=== PATIENT | female | born 1970 | race Caucasian/White ===

== ENCOUNTER 2017-01-04 01:54 | Day surgery (SDC) | payer SELFPAY ==
[2017-01-04] MEDS ORDERED: Ondansetron 4 MG/2 ML SDV IVPUSH ONE (02:22)
[2017-01-04] MEDS ORDERED: HYDROmorphone 1 MG/ML Syringe IVPUSH STA (02:22)
[2017-01-04] MEDS ORDERED: Sodium Chloride 0.9% 1,000 ML IV SCH (02:30)
--- NOTE | 2017-01-04 02:30 | EDM.PDOC ---
ED HPI GENERAL MEDICAL PROBLEM - General Chief Complaint: Abdominal Pain Stated Complaint: ABDOMINAL PAIN Time Seen by Provider: 01/04/17 02:02 Source of Information: Reports: Patient, Family (), RN Notes Reviewed History Limitations: Reports: No Limitations - History of Present Illness INITIAL COMMENTS - FREE TEXT/NARRATIVE: The patient states that she developed epigastric pain around 12 noon yesterday, 01/03/2017. It is crampy in character. It has gotten a little bit better and worse, but for the most part is constant. The patient felt better briefly when lying prone, but that no longer helps, and she has not identified any other modifiers. She has had nausea, but no vomiting. No recent fever, constipation, diarrhea, or urinary symptoms. No prior similar symptoms. The patient has not tried any home treatments. The patient's last oral solid food was at 16:30 01/03/2017. Her last oral liquids was at 00:45 tonight. The patient's PCP is Key Mejia. Bilateral Middle Abdomen Pain Score (Numeric/FACES): 6 - Related Data Allergies Allergy/AdvReac Type Severity Reaction Status Date / Time No Known Allergies Allergy Verified 11/01/14 07:50 Home Meds: Home Meds Venlafaxine HCl [Venlafaxine ER] 37 mg PO DAILY 02/18/14 [History] Past Medical History HEENT History: Reports: Impaired Vision Endocrine/Metabolic History: Reports: Obesity/BMI 30+, Other (See Below) (Night sweats) - Past Surgical History Female Surgical History: Reports: Section (x 2), Hysterectomy, Other (See Below) (Endometrial ablation) Social & Family History - Family History Family Medical History: Noncontributory - Tobacco Use Smoking Status *Q: Never Smoker Second Hand Smoke Exposure: No - Caffeine Use Caffeine Use: Reports: Coffee - Alcohol Use Alcohol Use History: No Days Per Week of Alcohol Use: 0 Number of Drinks Per Day: 0 Total Drinks Per Week: 0 - Recreational Drug Use Recreational Drug Use: No - Living Situation & Occupation Living situation: Reports: , with Spouse, with Family (Daughter) Occupation: Employed (Daycare provider) ED ROS GENERAL - Review of Systems Review Of Systems: See Below Constitutional: Reports: No Symptoms HEENT: Reports: No Symptoms Respiratory: Reports: No Symptoms Cardiovascular: Reports: No Symptoms Endocrine: Reports: No Symptoms GI/Abdominal: Reports: No Symptoms : Reports: No Symptoms Musculoskeletal: Reports: No Symptoms Skin: Reports: No Symptoms Neurological: Reports: No Symptoms Psychiatric: Reports: No Symptoms Hematologic/Lymphatic: Reports: No Symptoms Immunologic: Reports: No Symptoms ED EXAM, GI/ABD - Physical Exam Exam: See Below Exam Limited By: No Limitations General Appearance: Alert, WD/WN, No Apparent Distress Eyes: Bilateral: Normal Appearance, EOMI Ears: Normal External Exam, Hearing Grossly Normal Nose: Normal Inspection, No Blood Throat/Mouth: Normal Inspection, Normal Lips, Normal Voice, No Airway Compromise Head: Atraumatic, Normocephalic Neck: Normal Inspection, Full Range of Motion Respiratory/Chest: No Respiratory Distress, Lungs Clear, Normal Breath Sounds, No Accessory Muscle Use Cardiovascular: Normal Peripheral Pulses, Regular Rate, Rhythm, No Gallop, No JVD, No Murmur, No Rub GI/Abdominal Exam: Normal Bowel Sounds, Soft, No Organomegaly, No Distention, No Abnormal Bruit, No Mass, Pelvis Stable, Tender (Primarily to the right lower quadrant, but also to the right upper quadrant and to the epigastrium. Nontender elsewhere.), Other (Obese) (Female) Exam: Deferred Rectal (Female) Exam: Deferred Back Exam: Normal Inspection, Full Range of Motion. No: CVA Tenderness (L), CVA Tenderness (R) Extremities: Normal Inspection, Normal Range of Motion, No Pedal Edema, Normal Capillary Refill Neurological: Alert, Oriented, Normal Cognition, No Motor/Sensory Deficits Psychiatric: Normal Affect Skin Exam: Warm, Dry, Intact, Normal Color, No Rash Lymphatic: No Adenopathy Course - Vital Signs Last Recorded V/S: Last Vital Signs Temp 35.7 C 01/04/17 02:02 Pulse 78 01/04/17 02:02 Resp 18 01/04/17 02:02 BP 155/74 H 01/04/17 02:02 Pulse Ox 98 01/04/17 02:02 - Orders/Labs/Meds Orders: Active Orders 24 hr Category Date Time Status Abdomen Pelvis w Cont [CT] Stat Exams 01/04/17 02:22 Taken Sodium Chloride 0.9% [Normal Saline] 1,000 ml Med 01/04/17 02:30 Active IV ASDIRECTED Sodium Chloride 0.9% [Saline Flush] Med 01/04/17 03:23 Active 10 ml FLUSH ONETIME PRN Medication Orders Hydromorphone HCl (Dilaudid) 0.5 mg IVPUSH Q1H PRN PRN Reason: Pain Sodium Chloride (Normal Saline) 1,000 mls @ 150 mls/hr IV ASDIRECTED SORIN Last Admin: 01/04/17 02:37 Dose: 150 mls/hr Cefoxitin Sodium 2 gm/ Premix 50 mls @ 100 mls/hr IV ONETIME ONE Stop: 01/04/17 05:00 Last Admin: 01/04/17 04:32 Dose: 100 mls/hr Ondansetron HCl (Zofran) 4 mg IVPUSH Q6HR PRN PRN Reason: Nausea/Vomiting Sodium Chloride (Saline Flush) 10 ml FLUSH ONETIME PRN PRN Reason: IV FLUSH Last Admin: 01/04/17 03:42 Dose: 10 ml Labs: Laboratory Tests 01/04/17 01/04/17 01/04/17 Range/Units 02:28 02:35 02:35 WBC 14.75 H (3.98-10.04) K/mm3 RBC 5.00 (3.98-5.22) M/mm3 Hgb 14.1 (11.2-15.7) gm/L Hct 42.2 (34.1-44.9) % MCV 84.4 (79.4-94.8) fl MCH 28.2 (25.6-32.2) pg MCHC 33.4 (32.2-35.5) g/dl RDW Std Deviation 45.2 (36.4-46.3) fL Plt Count 222 (182-369) K/mm3 MPV 10.6 (9.4-12.3) fl Neutrophils % (Manual) 81 H (40-60) % Band Neutrophils % 1 (0-10) % Lymphocytes % (Manual) 12 L (20-40) % Atypical Lymphs % 0 % Monocytes % (Manual) 6 (2-10) % Eosinophils % (Manual) 0 L (0.7-5.8) % Basophils % (Manual) 0 L (0.1-1.2) Platelet Estimate Adequate Plt Morphology Comment Normal RBC Morph Comment Normal Sodium 138 (136-145) mEq/L Potassium 4.0 (3.5-5.1) mEq/L Chloride 102 (98-107) mEq/L Carbon Dioxide 26 (21-32) mEq/L Anion Gap 14.0 (5-15) BUN 13 (7-18) mg/dL Creatinine 0.8 (0.55-1.02) mg/dL Est Cr Clr Drug Dosing 78.23 mL/min Estimated GFR (MDRD) > 60 (>60) mL/min BUN/Creatinine Ratio 16.3 (14-18) Glucose 134 H (74-106) mg/dL Calcium 9.0 (8.5-10.1) mg/dL Total Bilirubin 0.6 (0.2-1.0) mg/dL AST 14 L (15-37) U/L ALT 21 (14-59) U/L Alkaline Phosphatase 68 (46-116) U/L Total Protein 7.9 (6.4-8.2) g/dl Albumin 3.9 (3.4-5.0) g/dl Globulin 4.0 gm/dL Albumin/Globulin Ratio 1.0 (1-2) Lipase 114 (73-393) U/L Urine Color Yellow (Yellow) Urine Appearance Clear (Clear) Urine pH 7.0 (5.0-8.0) Ur Specific [place] 1.025 (1.005-1.030) Urine Protein Trace H (Negative) Urine Glucose (UA) Negative (Negative) Urine Ketones 2+ H (Negative) Urine Occult Blood Trace-intact H (Negative) Urine Nitrite Negative (Negative) Urine Bilirubin Negative (Negative) Urine Urobilinogen 0.2 (0.2-1.0) Ur Leukocyte Esterase Trace H (Negative) Urine RBC 0-5 (0-5) /hpf Urine WBC 0-5 (0-5) /hpf Ur Epithelial Cells 0-5 (0-5) /hpf Urine Bacteria Few (FEW) /hpf Urine Mucus Few (FEW) /hpf Meds: Medications Generic Name Dose Route Start Last Admin Trade Name Freq PRN Reason Stop Dose Admin Hydromorphone HCl 0.5 mg 01/04/17 04:52 Dilaudid IVPUSH Q1H PRN Pain Sodium Chloride 1,000 mls @ 150 mls/hr 01/04/17 02:30 01/04/17 02:37 Normal Saline IV 150 mls/hr ASDIRECTED SORIN Administration Cefoxitin Sodium 2 gm/ Premix 50 mls @ 100 mls/hr 01/04/17 04:31 01/04/17 04: 32 IV 01/04/17 05:00 100 mls/hr ONETIME ONE Administration Ondansetron HCl 4 mg 01/04/17 04:53 Zofran IVPUSH Q6HR PRN Nausea/Vomiting Sodium Chloride 10 ml 01/04/17 03:23 01/04/17 03:42 Saline Flush FLUSH 10 ml ONETIME PRN Administration IV FLUSH Discontinued Medications Generic Name Dose Route Start Last Admin Trade Name Freq PRN Reason Stop Dose Admin Diatrizoate Meglum/Diatrizoate Sod 90 ml 01/04/17 03:23 01/04/17 03:42 Gastrografin 37% PO 01/04/17 03:24 90 ml ONETIME ONE Administration Hydromorphone HCl 0.5 mg 01/04/17 02:22 01/04/17 02:39 Dilaudid IVPUSH 01/04/17 02:23 0.5 mg ONETIME STA Administration Hydromorphone HCl 0.5 mg 01/04/17 04:08 01/04/17 04:25 Dilaudid IVPUSH 01/04/17 04:09 0.5 mg ONETIME ONE Administration Cefoxitin Sodium 2 gm/ Sodium 100 mls @ 200 mls/hr 01/04/17 04:07 Chloride IV 01/04/17 04:36 ONETIME ONE Cefoxitin Sodium Confirm 01/04/17 04:17 01/04/17 04:47 Mefoxin In Dextrose,Iso-Osm 2 Gm/50 Ml Administered 01/04/17 04:18 Not Given Dose 50 mls @ as directed .ROUTE .STK-MED ONE Iopamidol 125 ml 01/04/17 03:23 01/04/17 03:42 Isovue-300 (61%) IVPUSH 01/04/17 03:24 125 ml ONETIME ONE Administration Ondansetron HCl 4 mg 01/04/17 02:22 01/04/17 02:37 Zofran IVPUSH 01/04/17 02:23 4 mg ONETIME ONE Administration - Re-Assessments/Exams Free Text/Narrative Re-Assessment/Exam: 01/04/17 03:[address] Garcia, Radiologist at [facility] at 03:55 that the patient has uncomplicated acute appendicitis. 01/04/17 04:06 Test results discussed with the patient and her . They are agreeable to my calling the surgeon sock ironer. Case then discussed with Dr. Tovar at 04:02. He would like me to give the patient 2 g Mefoxin and admit her. He will take her to the operating room in the morning. Departure - Departure Time of Disposition: 04:07 Disposition: Admitted As Inpatient 65 Condition: Fair Clinical Impression: Acute appendicitis - Discharge Information - My Orders Last 24 Hours: My Active Orders 01/04/17 02:22 Abdomen Pelvis w Cont [CT] Stat 01/04/17 02:30 Sodium Chloride 0.9% [Normal Saline] 1,000 ml IV ASDIRECTED 01/04/17 03:23 Sodium Chloride 0.9% [Saline Flush] 10 ml FLUSH ONETIME PRN - Assessment/Plan Last 24 Hours: My Active Orders 01/04/17 02:22 Abdomen Pelvis w Cont [CT] Stat 01/04/17 02:30 Sodium Chloride 0.9% [Normal Saline] 1,000 ml IV ASDIRECTED 01/04/17 03:23 Sodium Chloride 0.9% [Saline Flush] 10 ml FLUSH ONETIME PRN
[2017-01-04] MEDS ORDERED: Iopamidol 612 MG/ML 150 ML Bottle IVPUSH ONE (03:23)
[2017-01-04] MEDS ORDERED: Sodium Chloride 0.9% 10 ML Syringe FLUSH PRN (03:23)
[2017-01-04] MEDS ORDERED: Diatrizoate Meglumine/Diatrizoate Sodium 37% 120 ML Bottle PO ONE (03:23)
[2017-01-04] MEDS ORDERED: cefOXitin 2 GM in Sodium Chloride 0.9% 100 ML IV ONE (04:07)
[2017-01-04] MEDS ORDERED: HYDROmorphone 0.5 MG/0.5 ML Syringe IVPUSH ONE (04:08)
[2017-01-04] MEDS ORDERED: cefOXitin 2 GM in Premix Bag 1 BAG IV ONE (04:31)
[2017-01-04] MEDS ORDERED: Ondansetron 4 MG/2 ML SDV IVPUSH PRN ×2 (04:53→10:21)
[2017-01-04] MEDS: HYDROmorphone 0.5 MG/0.5 ML Syringe IVPUSH PRN ×2 (05:22→07:23)
--- NOTE | 2017-01-04 07:44 | CT ---
CT abdomen and pelvis Technique: Multiple axial sections were obtained from above the dome of the diaphragm inferiorly through the pubic symphysis. Intravenous and oral contrast was utilized. Delayed images were also obtained through the bladder. Comparison: No previous abdominal imaging. Findings: Dilated appendix is seen. Several areas of increased density seen within the appendix believed to represent appendicoliths. Inflammatory change is seen around the appendix. Findings are compatible with appendicitis. Visualized lung bases show incidental dependent atelectasis. Liver shows no focal parenchymal abnormality. Spleen appears within normal limits. Adrenal glands show no discrete nodule. Pancreas is within normal limits. Gallbladder shows no calcified gallstones. Kidneys show symmetric contrast enhancement. Cyst noted off the left kidney measuring 1.8 cm. Aorta shows no aneurysmal dilatation. No retroperitoneal adenopathy or mesenteric abnormalities are seen. No pelvic mass or adenopathy is seen. Delayed images show contrast within the distal ureters and within the bladder. No bowel dilatation is seen. Bone window settings were reviewed which appear within normal limits for the patient's age. Impression: 1. Findings compatible with appendicitis. 2. Other incidental findings as described above. Diagnostic code #5 Agree with preliminary report issued by [facility] ([facility] preliminary report dictated on 01/04/17, 4:54 AM Central Time)
[2017-01-04] MEDS ORDERED: Bupivacaine 0.5%/EPINEPHrine 1:200,000 50 ML MDV ONE (08:01)
[2017-01-04] MEDS ORDERED: Lidocaine 1% with EPINEPHrine 1:100,000 20 ML MDV ONE (08:01)
--- NOTE | 2017-01-04 08:02 | PCM.HP ---
H&P History of Present Illness - General Date of Service: 01/04/17 Admit Problem/Dx: Admission Diagnosis/Problem Admission Diagnosis/Problem Acute appendicitis - History of Present Illness Initial Comments - Free Text/Narative: 46-year-old female was in her usual state of excellent health until yesterday at about noon when she fell ill. This was associated with epigastric discomfort which was improved by laying on her stomach. The pain moved the right upper quadrant and then to the right lower quadrant throughout the day. It was associated with anorexia and nausea but no emesis. There was no diarrhea or constipation as well. Because of the persistent discomfort she presented to the emergency room last night where she was seen by staff. A CT of her abdomen and pelvis was performed and had imaging features consistent with acute appendicitis. Her white blood cell count was about 14,000. I was asked to see her in consultation for surgery. Bilateral Middle Abdomen Pain Score (Numeric/FACES): 5 - Related Data Allergies/Adverse Reactions: Allergies Allergy/AdvReac Type Severity Reaction Status Date / Time No Known Allergies Allergy Verified 11/01/14 07:50 Home Medications: Home Meds Venlafaxine HCl [Venlafaxine ER] 37 mg PO DAILY 02/18/14 [History] Past Medical History HEENT History: Reports: Impaired Vision Respiratory History: Reports: Asthma Endocrine/Metabolic History: Reports: Obesity/BMI 30+, Other (See Below) Other Endocrine/Metabolic History: night sweats - Past Surgical History Female Surgical History: Reports: Section, Hysterectomy, Other (See Below) Other Female Surgeries/Procedures: endometrial ablation Social & Family History - Family History Family Medical History: Noncontributory - Tobacco Use Smoking Status *Q: Never Smoker Second Hand Smoke Exposure: No - Caffeine Use Caffeine Use: Reports: Coffee - Alcohol Use Days Per Week of Alcohol Use: 0 Number of Drinks Per Day: 0 Total Drinks Per Week: 0 - Recreational Drug Use Recreational Drug Use: No Drug Use in Last 12 Months: No - Living Situation & Occupation Living situation: Reports: , with Spouse, with Family (Daughter) Occupation: Employed (Daycare provider) H&P Review of Systems - Review of Systems: Review Of Systems: See Below Gastrointestinal: Reports: Abdominal Pain, Anorexia Exam - Exam Exam: See Below - Vital Signs Vital Signs: Last Vital Signs Temp 35.7 C 01/04/17 02:02 Pulse 78 07/25/17 02:02 Resp 18 01/04/17 02:02 BP 155/74 H 01/04/17 02:02 Pulse Ox 98 01/04/17 02:02 Weight: 95.935 kg - Exam General: Alert, Oriented, Cooperative, Mild Distress HEENT: EOMI, Hearing Intact Neck: Supple, Trachea Midline Lungs: Clear to Auscultation, Normal Respiratory Effort Cardiovascular: Regular Rate, Regular Rhythm, Normal S1, Normal S2 GI/Abdominal Exam: Normal Bowel Sounds, Tender (McBurney's point) (Female) Exam: Deferred Rectal (Female) Exam: Deferred Back Exam: Normal Inspection Extremities: Normal Inspection Skin: Warm, Dry, Intact Psychiatric: Alert, Normal Affect, Normal Mood - Patient Data Result Diagrams: 01/04/17 02:35 01/04/17 02:35 *Q Meaningful Use (ADM) - VTE *Q VTE Criteria *Q: - Stroke *Q Stroke Criteria *Q: - AMI *Q AMI Criteria *Q: - Problem List (1) Acute appendicitis SNOMED Code(s): 36267484 ICD Code: K35.80 - UNSPECIFIED ACUTE APPENDICITIS Status: Acute Priority : High Current Visit: Yes Qualifiers: Acute appendicitis type: unspecified acute appendicitis type Qualified Code (s): K35.80 - Unspecified acute appendicitis Problem List Initiated/Reviewed/Updated: Yes Orders Last 24hrs: Active Orders 24 hr Category Date Time Status Admission Status [Patient Status] [ADT] Routine ADT 01/04/17 04:55 Active Bedrest Bathroom Privileges [RC] ASDIRECTED Care 01/04/17 04:59 Active Up With Assistance [RC] ASDIRECTED Care 01/04/17 04:55 Active NPO [Nothing Per Oral Diet] [DIET] Diet 01/04/17 Breakfast Active HYDROmorphone [Dilaudid] Med 01/04/17 04:52 Active 0.5 mg IVPUSH Q1H PRN Ondansetron [Zofran] Med 01/04/17 04:53 Active 4 mg IVPUSH Q6HR PRN Schedule Procedure [COMM] Routine Oth 01/04/17 05:31 Ordered Code Status [Resuscitation Status] Routine Resus Stat 01/04/17 04:52 Ordered Medication Orders Hydromorphone HCl (Dilaudid) 0.5 mg IVPUSH Q1H PRN PRN Reason: Pain Last Admin: 01/04/17 07:23 Dose: 0.5 mg Admin: 01/04/17 05:22 Dose: 0.5 mg Sodium Chloride (Normal Saline) 1,000 mls @ 150 mls/hr IV ASDIRECTED SORIN Last Admin: 01/04/17 02:37 Dose: 150 mls/hr Ondansetron HCl (Zofran) 4 mg IVPUSH Q6HR PRN PRN Reason: Nausea/Vomiting Sodium Chloride (Saline Flush) 10 ml FLUSH ONETIME PRN PRN Reason: IV FLUSH Last Admin: 01/04/17 03:42 Dose: 10 ml Assessment/Plan Comment:: imp: Acute appendicitis. Will need appendectomy. plan: Laparoscopic, possible open appendectomy. The benefits risks of the procedure were explained to her and her . She wanted to proceed as soon as possible.
--- NOTE | 2017-01-04 08:09 | PCM.PREANE ---
Preanesthetic Assessment - Anesthesia/Transfusion/Family Hx Anesthesia History: Prior Anesthesia Without Reaction Family History of Anesthesia Reaction: No Transfusion History: No Prior Transfusion(s) Intubation History: Unknown - Review of Systems General: No Symptoms Pulmonary: No Symptoms (asthma noted per patient, but no need for medication or treatment noted.) Cardiovascular: No Symptoms Gastrointestinal: No Symptoms Neurological: No Symptoms Other: Reports: Easy Bruising - Physical Assessment NPO Status Date: 01/04/17 NPO Status Time: 00:45 Pulse: 78 O2 Sat by Pulse Oximetry: 98 Respiratory Rate: 18 Blood Pressure: 155/74 Temperature: 35.7 C Vital Signs: Last Vital Signs Temp 35.7 C 01/04/17 02:02 Pulse 78 01/04/17 02:02 Resp 18 01/04/17 02:02 BP 155/74 H 01/04/17 02:02 Pulse Ox 98 01/04/17 02:02 Height: 1.65 m Weight: 95.935 kg ASA Class: 2 Mental Status: Alert & Oriented x3 Airway Class: Mallampati = 2 Dentition: Reports: Normal Dentition, Dennison(s), Caries Thyro-Mental Finger Breadths: 3 Mouth Opening Finger Breadths: 3 ROM/Head Extension: Full Lungs: Clear to Auscultation, Normal Respiratory Effort Cardiovascular: Regular Rate, Regular Rhythm, No Murmurs - Lab Values: Laboratory Last Values WBC 14.75 K/mm3 (3.98-10.04) H 01/04/17 02:35 RBC 5.00 M/mm3 (3.98-5.22) 01/04/17 02:35 Hgb 14.1 gm/L (11.2-15.7) 01/04/17 02:35 Hct 42.2 % (34.1-44.9) 01/04/17 02:35 MCV 84.4 fl (79.4-94.8) 01/04/17 02:35 MCH 28.2 pg (25.6-32.2) 01/04/17 02:35 MCHC 33.4 g/dl (32.2-35.5) 01/04/17 02:35 RDW Std Deviation 45.2 fL (36.4-46.3) 01/04/17 02:35 Plt Count 222 K/mm3 (182-369) 01/04/17 02:35 MPV 10.6 fl (9.4-12.3) 01/04/17 02:35 Neutrophils % (Manual) 81 % (40-60) H 01/04/17 02:35 Band Neutrophils % 1 % (0-10) 01/04/17 02:35 Lymphocytes % (Manual) 12 % (20-40) L 01/04/17 02:35 Atypical Lymphs % 0 % 01/04/17 02:35 Monocytes % (Manual) 6 % (2-10) 01/04/17 02:35 Eosinophils % (Manual) 0 % (0.7-5.8) L 01/04/17 02:35 Basophils % (Manual) 0 (0.1-1.2) L 01/04/17 02:35 Platelet Estimate Adequate 01/04/17 02:35 Plt Morphology Comment Normal 01/04/17 02:35 RBC Morph Comment Normal 01/04/17 02:35 Sodium 138 mEq/L (136-145) 01/04/17 02:35 Potassium 4.0 mEq/L (3.5-5.1) 01/04/17 02:35 Chloride 102 mEq/L (98-107) 01/04/17 02:35 Carbon Dioxide 26 mEq/L (21-32) 01/04/17 02:35 Anion Gap 14.0 (5-15) 01/04/17 02:35 BUN 13 mg/dL (7-18) 01/04/17 02:35 Creatinine 0.8 mg/dL (0.55-1.02) 01/04/17 02:35 Est Cr Clr Drug Dosing 78.23 mL/min 01/04/17 02:35 Estimated GFR (MDRD) > 60 mL/min (>60) 01/04/17 02:35 BUN/Creatinine Ratio 16.3 (14-18) 01/04/17 02:35 Glucose 134 mg/dL (74-106) H 01/04/17 02:35 Calcium 9.0 mg/dL (8.5-10.1) 01/04/17 02:35 Total Bilirubin 0.6 mg/dL (0.2-1.0) 01/04/17 02:35 AST 14 U/L (15-37) L 01/04/17 02:35 ALT 21 U/L (14-59) 01/04/17 02:35 Alkaline Phosphatase 68 U/L (46-116) 01/04/17 02:35 Total Protein 7.9 g/dl (6.4-8.2) 01/04/17 02:35 Albumin 3.9 g/dl (3.4-5.0) 01/04/17 02:35 Globulin 4.0 gm/dL 01/04/17 02:35 Albumin/Globulin Ratio 1.0 (1-2) 01/04/17 02:35 Lipase 114 U/L (73-393) 01/04/17 02:35 Urine Color Yellow (Yellow) 01/04/17 02:28 Urine Appearance Clear (Clear) 01/04/17 02:28 Urine pH 7.0 (5.0-8.0) 01/04/17 02:28 Ur Specific [place] 1.025 (1.005-1.030) 01/04/17 02:28 Urine Protein Trace (Negative) H 01/04/17 02:28 Urine Glucose (UA) Negative (Negative) 01/04/17 02:28 Urine Ketones 2+ (Negative) H 01/04/17 02:28 Urine Occult Blood Trace-intact (Negative) H 01/04/17 02:28 Urine Nitrite Negative (Negative) 01/04/17 02:28 Urine Bilirubin Negative (Negative) 01/04/17 02:28 Urine Urobilinogen 0.2 (0.2-1.0) 01/04/17 02:28 Ur Leukocyte Esterase Trace (Negative) H 01/04/17 02:28 Urine RBC 0-5 /hpf (0-5) 01/04/17 02:28 Urine WBC 0-5 /hpf (0-5) 01/04/17 02:28 Ur Epithelial Cells 0-5 /hpf (0-5) 01/04/17 02:28 Urine Bacteria Few /hpf (FEW) 01/04/17 02:28 Urine Mucus Few /hpf (FEW) 01/04/17 02:28 Above lab values reviewed and noted. - Allergies Allergies/Adverse Reactions: Allergies Allergy/AdvReac Type Severity Reaction Status Date / Time No Known Allergies Allergy Verified 11/01/14 07:50 - Anesthesia Plan Pre-Op Medication Ordered: None - Acknowledgements Anesthesia Type Planned: General Anesthesia Pt an Appropriate Candidate for the Planned Anesthesia: Yes Alternatives and Risks of Anesthesia Discussed w Pt/Guardian: Yes Pt/Guardian Understands and Agrees with Anesthesia Plan: Yes PreAnesthesia Questionnaire HEENT History: Reports: Impaired Vision Respiratory History: Reports: Asthma Endocrine/Metabolic History: Reports: Obesity/BMI 30+, Other (See Below) Other Endocrine/Metabolic History: night sweats - Past Surgical History Female Surgical History: Reports: Section, Hysterectomy, Other (See Below) Other Female Surgeries/Procedures: endometrial ablation - SUBSTANCE USE Smoking Status *Q: Never Smoker Second Hand Smoke Exposure: No Days Per Week of Alcohol Use: 0 Number of Drinks Per Day: 0 Total Drinks Per Week: 0 Recreational Drug Use History: No - HOME MEDS Home Medications: Home Meds Venlafaxine HCl [Venlafaxine ER] 37 mg PO DAILY 02/18/14 [History] - CURRENT (IN HOUSE) MEDS Current Meds: Current Medications Hydromorphone HCl (Dilaudid) 0.5 mg IVPUSH Q1H PRN PRN Reason: Pain Last Admin: 01/04/17 07:23 Dose: 0.5 mg Sodium Chloride (Normal Saline) 1,000 mls @ 150 mls/hr IV ASDIRECTED SORIN Last Admin: 01/04/17 02:37 Dose: 150 mls/hr Ondansetron HCl (Zofran) 4 mg IVPUSH Q6HR PRN PRN Reason: Nausea/Vomiting Sodium Chloride (Saline Flush) 10 ml FLUSH ONETIME PRN PRN Reason: IV FLUSH Last Admin: 01/04/17 03:42 Dose: 10 ml Discontinued Medications Diatrizoate Meglum/Diatrizoate Sod (Gastrografin 37%) 90 ml PO ONETIME ONE Stop: 01/04/17 03:24 Last Admin: 01/04/17 03:42 Dose: 90 ml Hydromorphone HCl (Dilaudid) 0.5 mg IVPUSH ONETIME STA Stop: 01/04/17 02:23 Last Admin: 01/04/17 02:39 Dose: 0.5 mg Hydromorphone HCl (Dilaudid) 0.5 mg IVPUSH ONETIME ONE Stop: 01/04/17 04:09 Last Admin: 01/04/17 04:25 Dose: 0.5 mg Cefoxitin Sodium 2 gm/ Sodium (Chloride) 100 mls @ 200 mls/hr IV ONETIME ONE Stop: 01/04/17 04:36 Last Admin: 01/04/17 05:10 Dose: Not Given Cefoxitin Sodium (Mefoxin In Dextrose,Iso-Osm 2 Gm/50 Ml) Confirm Administered Dose 50 mls @ as directed .ROUTE .STK-MED ONE Stop: 01/04/17 04:18 Last Admin: 01/04/17 04:47 Dose: Not Given Cefoxitin Sodium 2 gm/ Premix 50 mls @ 100 mls/hr IV ONETIME ONE Stop: 01/04/17 05:00 Last Admin: 01/04/17 04:32 Dose: 100 mls/hr Iopamidol (Isovue-300 (61%)) 125 ml IVPUSH ONETIME ONE Stop: 01/04/17 03:24 Last Admin: 01/04/17 03:42 Dose: 125 ml Ondansetron HCl (Zofran) 4 mg IVPUSH ONETIME ONE Stop: 01/04/17 02:23 Last Admin: 01/04/17 02:37 Dose: 4 mg
[2017-01-04] MEDS ORDERED: Rocuronium 50 MG/5 ML Vial ONE (08:26)
[2017-01-04] MEDS ORDERED: Ondansetron 4 MG/2 ML SDV ONE (08:26)
[2017-01-04] MEDS ORDERED: ceFAZolin 1 GM Vial ONE (08:26)
[2017-01-04] MEDS ORDERED: Midazolam 1 MG/ML 2 ML SDV ONE (08:27)
[2017-01-04] MEDS ORDERED: fentaNYL 250 MCG/5 ML SDV ONE (08:27)
[2017-01-04] MEDS ORDERED: Propofol 200 MG/20 ML SDV ONE (08:27)
[2017-01-04] MEDS ORDERED: Sodium Chloride 0.9% 10 ML Syringe ONE (08:27)
[2017-01-04] MEDS ORDERED: HYDROmorphone 1 MG/ML Syringe ONE (09:27)
[2017-01-04] MEDS ORDERED: Dexamethasone 4 MG/ML SDV ONE (09:48)
[2017-01-04] MEDS ORDERED: Neostigmine Methylsulfate 1 MG/ML 5 ML Syringe ONE (09:55)
[2017-01-04] MEDS ORDERED: Ketorolac 30 MG/ML SDV ONE (10:04)
[2017-01-04] MEDS ORDERED: fentaNYL 100 MCG/2 ML SDV IVPUSH PRN (10:21)
--- NOTE | 2017-01-04 10:21 | PCM.POSTAN ---
POST ANESTHESIA ASSESSMENT - MENTAL STATUS Mental Status: Alert, Oriented - VITAL SIGNS Pulse Rate: 88 SaO2: 98 Resp Rate: 16 Blood Pressure: 111/67 Temperature: 36.3 C - RESPIRATORY Respiratory Status: respiratory rate WNL, Airway Patent, O2 Saturation Stable - CARDIOVASCULAR CV Status: Pulse Rate WNL, Blood Pressure Stable - GASTROINTESTINAL GI Status: No Symptoms - PAIN Pain Score: 0 - POST OP HYDRATION Hydration Status: Adequate & Stable
--- NOTE | 2017-01-04 10:35 | PCM.OPNOTE ---
- General Post-Op/Procedure Note Date of Surgery/Procedure: 01/04/17 Operative Procedure(s): Laparoscopic appendectomy Findings: Acute suppurative appendicitis. Adhesions between the omentum and the lower midline abdominal wall Pre Op Diagnosis: Acute appendicitis Post-Op Diagnosis: Acute separate appendicitis Anesthesia Technique: General ET Tube, Local Primary Surgeon: Merritt Tovar Pathology: Appendix EBL in mLs: 2 Complications: None Condition: Good Free Text/Narrative:: After adequate general endotracheal tube anesthesia was obtained the patients abdomen was prepped for the procedure. She was draped sterilely afterwards. A super umbilical incision was made with a 15 blade. The midline was entered with a 15 blade. A 12 mm camera port was inserted next followed by CO2 pneumoperitoneum. Exploration revealed the findings above. A 5 mm port was placed in the suprapubic region and in the left lower quadrant after local analgesia was given. I grasped the appendiceal tip and then made a window in the appendiceal mesentery. I fired the stapler across the base of the appendix and then three loads cross a thickened appendiceal mesentery. The appendix was placed in a specimen bag and removed through the umbilicus. I irrigated out the right lower quadrant and placed the omentum in the right lower quadrant. I decannulated the abdomen under direct vision and there were no bleeding from the port sites. The supraumbilical site was closed with a [id number] 0 Vicryl. Subcutaneous tissues were closed with 3-0 Vicryl. The skin was closed with 4-0 Vicryl. Steri-Strips and gauze were used for the dressing. [employer] photographs were taken for the patient and for the record. There were no procedural complications.
[2017-01-04] MEDS ORDERED: HYDROmorphone 0.5 MG/0.5 ML Syringe IVPUSH PRN (10:45)
[2017-01-04] MEDS ORDERED: Acetaminophen/Codeine 300-30 MG Tab PO PRN (11:00)
[2017-01-04 12:27] VITALS: BP 111/66
== END 2017-01-04 14:13 | disposition home or self-care (01) ==
LOC: JD.ED 01:54 → JD.ICU 04:17 → UNDOADMIN 04:17 → JD.ICU 04:50 → UNDOADMIN 04:50 → JD.SDS 11:06
PROVIDERS: ATTEND Surgery
PROC: 0DTJ4ZZ Resection of Appendix, Percutaneous Endoscopic Approach (ICD-10-PCS; principal; 2017-01-04)
DX: K35.89 Other acute appendicitis (principal); R11.0 Nausea
CPT/HCPCS: 36415; 44970; 74177; 80053; 81001; 83690; 85025; 88304; 96361; 96374; 96375; 96376; 99285; A9270; J0694; J1100; J1170; J1885; J2250; J2405; J2710; J3010; J7040; J7050; Q9963; Q9967; 00840; 99284; J0690; J2704

== ENCOUNTER 2023-10-27 07:00 | Day surgery (SDC) | payer SELFPAY ==
[~2023-10-27 07:00] MED LIST: Propofol 200 MG/20 ML SDV ONE; Sodium Chloride 0.9% 10 ML Syringe FLUSH PRN; Sodium Chloride 0.9% 10 ML Syringe FLUSH SCH
[2023-10-27] MEDS ORDERED: Lidocaine 1% 4 ML ONE (07:02)
[2023-10-27] MEDS ORDERED: Propofol 200 MG/20 ML SDV ONE ×3 (07:02→07:58)
[2023-10-27] MEDS: Lactated Ringers 1,000 ML IV SCH (07:30)
[2023-10-27] MEDS ORDERED: dexmedeTOMIDine HCl 200 MCG/2 ML SDV ONE (07:30)
[2023-10-27] MEDS ORDERED: Ondansetron 4 MG/2 ML SDV IVPUSH PRN (09:34)
[2023-10-27 12:01] VITALS: BP 107/68; PULSE 70
== END 2023-10-27 09:20 | disposition home or self-care (01) ==
LOC: JD.SDS 07:00
PROVIDERS: ATTEND Surgery
DX: Z12.11 Encounter for screening for malignant neoplasm of colon (principal); K63.5 Polyp of colon; K64.4 Residual hemorrhoidal skin tags; F32.A Depression, unspecified; E66.9 Obesity, unspecified; Z68.39 Body mass index [BMI] 39.0-39.9, adult; Z79.899 Other long term (current) drug therapy
CPT/HCPCS: 45380; J2704; J7120; 00812; J3490